=== PATIENT | male | born 1975 | race American Indian/Alaskan Native ===

== ENCOUNTER 2018-12-18 12:54 | Emergency (ER) | payer SELFPAY ==
--- NOTE | 2018-12-18 17:46 | Emergency Department Report ---
ED General Adult HPI - General Chief complaint: Dental/Oral Stated complaint: ABSCESS Source: patient Mode of arrival: Ambulatory Limitations: No Limitations - History of Present Illness Initial comments: 43yo M states that sudden gum pain of his upper mouth began yesterday. He states that he has not had this irritation or pain before. -: Sudden Location: mouth Radiation: non-radiation Severity scale (0 -10): 10 Quality: sharp Consistency: constant Improves with: none Worsens with: none Associated Symptoms: denies other symptoms Treatments Prior to Arrival: none - Related Data Previous Rx's Medication Instructions Recorded Last Taken Type Acyclovir [Zovirax Tab] 400 mg PO Q8H 10 Days #30 tab 12/18/18 Unknown Rx Chlorhexidine Mouthwash [Peridex] 15 ml MM BID 10 Days #1 bottle 12/18/18 Unknown Rx Allergies Allergy/AdvReac Type Severity Reaction Status Date / Time No Known Allergies Allergy Unverified 12/18/18 12:55 ED Review of Systems ROS: Stated complaint: ABSCESS Other details as noted in HPI Constitutional: denies: chills, fever Eyes: denies: eye pain, eye discharge, vision change ENT: as per HPI Respiratory: denies: cough, shortness of breath, wheezing Cardiovascular: denies: chest pain, palpitations Endocrine: no symptoms reported Gastrointestinal: denies: abdominal pain, nausea, diarrhea Genitourinary: denies: urgency, dysuria Musculoskeletal: denies: back pain, joint swelling, arthralgia Skin: denies: rash, lesions Neurological: denies: headache, weakness, paresthesias Psychiatric: denies: anxiety, depression Hematological/Lymphatic: denies: easy bleeding, easy bruising ED Past Medical Hx - Past Medical History Previous Medical History?: Yes Hx COPD: Yes Additional medical history: Sarcadosis - Surgical History Past Surgical History?: Yes Hx Coronary Stent: Yes - Social History Smoking Status: Never Smoker Substance Use Type: Alcohol - Medications Home Medications: Home Medications Medication Instructions Recorded Confirmed Last Taken Type Acyclovir [Zovirax Tab] 400 mg PO Q8H 10 Days #30 tab 12/18/18 Unknown Rx Chlorhexidine Mouthwash [Peridex] 15 ml MM BID 10 Days #1 bottle 12/18/18 Unknown Rx ED Physical Exam - General Limitations: No Limitations General appearance: alert, in no apparent distress - Head Head exam: Present: atraumatic, normocephalic - Eye Eye exam: Present: normal appearance - Expanded ENT Exam Expanded Mouth exam: Present: other (enlarged painful erythematous vesicles of the gingiva superior to teeth 8 and 9) Teeth exam: Present: gingival enlargement - Neck Neck exam: Present: normal inspection - Respiratory Respiratory exam: Present: normal lung sounds bilaterally. Absent: respiratory distress - Cardiovascular Cardiovascular Exam: Present: regular rate, normal rhythm. Absent: systolic murmur, diastolic murmur, rubs, gallop - GI/Abdominal GI/Abdominal exam: Present: soft, normal bowel sounds - Rectal Rectal exam: Present: deferred - Extremities Exam Extremities exam: Present: normal inspection - Back Exam Back exam: Present: normal inspection - Neurological Exam Neurological exam: Present: alert, oriented X3 - Psychiatric Psychiatric exam: Present: normal affect, normal mood - Skin Skin exam: Present: warm, dry, intact, normal color. Absent: rash ED Course Vital Signs 12/18/18 12:59 Temperature 98.5 F Pulse Rate 96 H Respiratory 20 Rate Blood Pressure 125/83 O2 Sat by Pulse 96 Oximetry ED Medical Decision Making - Medical Decision Making 43yo M states that sudden gum pain of his upper mouth began yesterday. He states that he has not had this irritation or pain before. 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 Pt was given Peridex, Acyclovir, and told to F/U with primary care provider. He was instructed to see ER if symptoms worsen or if new severe ailment arises. Critical care attestation.: If time is entered above; I have spent that time in minutes in the direct care of this critically ill patient, excluding procedure time. ED Disposition Clinical Impression: Vesiculoulcerative disease of mouth Condition: Stable Additional Instructions: Pt was given Peridex, Acyclovir, and told to F/U with primary care provider. He was instructed to see ER if symptoms worsen or if new severe ailment arises. Prescriptions: Chlorhexidine Mouthwash [Peridex] 15 ml MM BID 10 Days #1 bottle Acyclovir [Zovirax Tab] 400 mg PO Q8H 10 Days #30 tab Referrals: PRIMARY CARE, [Primary Care Provider] - 3-[address] [facility] [Outside] - 3-5 Days Time of Disposition: 17:56
[2018-12-18 18:04] VITALS: BP 121/80
== END 2018-12-18 18:02 | disposition home or self-care (01) ==
LOC: ED 12:54
DX: K13.70 Unspecified lesions of oral mucosa (principal); J44.9 Chronic obstructive pulmonary disease, unspecified; Z95.5 Presence of coronary angioplasty implant and graft